=== PATIENT | male | born 1950 | race Caucasian/White ===

== ENCOUNTER → 2018-02-23 | Outpatient (CLI) | payer OTHER ==
[~2018-02-23] MED LIST: FLOMAX0.4 MG PO
--- NOTE | ~2018-02-23 | EKG ---
[place] [address] [facility] [place] [address] ELECTROCARDIOGRAM REPORT Name: RODOLFOCARLOS Fay Room #: [facility]#: [id number] Admission: 02/23/18 Attend Phys: Nikhil Larson MD Discharge: Date of : 52 Report #: [id number] THIS REPORT FOR: //name// [facility] Test Date: 2018-02-23 Test Time: 15:38:16 Pat Name: CARLOS HOLLOWAY Department: Room: Gender: M [employer] Account Manager: JOHNNIE : 1950 Requested By: Nikhil Larson Order Number: [id number] MD: Randolph Rojas Measurements Intervals [place] Rate: 68 P: 21 AR: 149 QRS: 38 QRSD: 93 T: 33 QT: 394 QTc: 420 Interpretive Statements Sinus rhythm Abnormal R-wave progression, early transition Baseline wander in lead(s) V4 No previous ECG available for comparison Electronically Signed On 02-23-2018 16:38:43 CDT by Randolph Rojas [email or web address] <ELECTRONICALLY SIGNED> By: Randolph Rojas MD, [facility] 02/23/18 1638 1538 1538 Randolph Rojas MD, [facility] /EPI
== END | disposition home or self-care (01) ==
LOC: LITH 14:49
DX: N20.0 Calculus of kidney (principal)